=== PATIENT | female | born 1970 | race African-American/Black ===

== ENCOUNTER 2019-11-29 11:27 | Emergency (ER) | payer OTHER ==
[~2019-11-29] VITALS: Ht 165.1 cm; Wt 68.0 kg
[2019-11-29] MEDS ORDERED: NOHOMEMEDICATIONS (11:37)
[2019-11-29 13:00] LABS: ABSOLUTE NEUTROPHILS 5.9 thou/uL (1.4-8.2); BASOPHILS 1.2 % (0.0-2.0); EOSINOPHILS 2.1 % (0.0-3.0); HEMATOCRIT 39.8 % (37.0-47.0); HEMOGLOBIN 13.5 gm/dL (12.0-15.0); LYMPHOCYTES 20.5 % (24.0-44.0); MCH 29.3 pg (26.0-34.0); MCHC 34.1 g/dL (28.0-37.0); MCV 86.1 fL (80.0-100.0); PLATELET COUNT 159 thou/uL (150-400); POLYS 70.2 % (36.0-66.0); RBC 4.62 mil/uL (4.20-5.00); RDW 12.1 % (10.5-14.5); WBC 8.4 thou/uL (4.0-11.0)
[2019-11-29 13:10] LABS: CALCIUM 8.6 mg/dL (8.5-10.1); CREATININE 0.9 mg/dL (0.6-1.0); POTASSIUM 3.7 mmol/L (3.5-5.1)
[2019-11-29] MEDS ORDERED: NAPROSYN500 MG PO (15:19)
[2019-11-29 15:55] VITALS: BP 102/52
== END 2019-11-29 15:55 | disposition home or self-care (01) ==
LOC: ER 11:27
PROVIDERS: Emergency Medicine
DX: R22.1 Localized swelling, mass and lump, neck (principal); L72.8 Other follicular cysts of the skin and subcutaneous tissue; F17.210 Nicotine dependence, cigarettes, uncomplicated